=== PATIENT | female | born 1945 | race Caucasian/White ===

== ENCOUNTER → 2016-10-02 | Outpatient (CLI) | payer OTHER | LOC: CIMAGING 07:12 | DX: Z12.31 Encounter for screening mammogram for malignant neoplasm of breast (principal); Z80.3 Family history of malignant neoplasm of breast | CPT/HCPCS: G0202 ==

== ENCOUNTER → 2016-10-13 | Outpatient (CLI) | payer OTHER | LOC: CIMAGING 13:32 | DX: N60.01 Solitary cyst of right breast (principal) | CPT/HCPCS: 76641; G0206 ==

== ENCOUNTER → 2018-01-19 | Outpatient (CLI) | payer OTHER | LOC: CIMAGING 07:24 | DX: Z12.31 Encounter for screening mammogram for malignant neoplasm of breast (principal); Z80.3 Family history of malignant neoplasm of breast ==

== ENCOUNTER 2018-06-18 08:40 | Emergency (ER) | payer OTHER ==
[2018-06-18 08:47] VITALS: BP 115/65
--- NOTE | 2018-06-18 09:30 | EDPHY ---
General Time Seen by Provider: 06/18/18 09:20 Narrative: CHIEF COMPLAINT: Sciatica HISTORY OF PRESENT ILLNESS: Patient presents by private vehicle with complaints of sciatica. She states that she has a right lower back pain this started last night. Gradual onset. Constant duration. At rest it is a 7/10. With movement palpation it is 10/10. She describes no position of comfort. She has no midline back tenderness. No fever. No feeling of illness. She has some pain that radiates down the right leg to the dorsum of the foot. She has no saddle anesthesia. No incontinence of bowel or bladder. He has no history of epidural injections, IV drug use or discopathy. No trauma or fall. She has no midline back tenderness at any level. She has no difficulty ambulating but it is painful. No other associated complaints or modifying factors. REVIEW OF SYSTEMS: 10 systems were reviewed and negative with the exception of the elements mentioned in the history of present illness. PCP: Dr. Carpenter SPECIALISTS: None PAST MEDICAL HISTORY: Chronic pain dyslipidemia nicotine dependency, hypertension, degenerative joint PAST SURGICAL HISTORY: No recent surgical history. Remote hysterectomy SOCIAL HISTORY: Daily smoker. Denies alcohol or drug use. Lives independently. FAMILY HISTORY: Noncontributory EXAMINATION: General Appearance: Alert, no distress. Ambulatory. Conversing in full sentences. Well appearing. Head: normocephalic, atraumatic Eyes: Pupils equal and round, no conjunctival pallor or injection ENT, Mouth: Mucous membranes moist Neck: Normal inspection, supple, non-tender Respiratory: Lungs are clear to auscultation Cardiovascular: Regular rate and rhythm Gastrointestinal: Abdomen is soft and nontender Back: Normal appearance. No midline tenderness of the lumbar thoracic spine. There is point tenderness of the right SI joint. This does elicit her pain. She has normal range of motion. Neurological: A&O, nonfocal, normal steady gait. Light sensory symmetric at all levels below the umbilicus. She has excellent strength of the knees, ankles and great toe. Normal proprioception of great toes bilaterally. Skin: Warm and dry, no rash. No cellulitis, fluctuance, induration or abnormalities of the skin overlying the affected area. Extremities: Nontender, no pedal edema. Symmetric range of motion. Psychiatric: Mood and affect normal DIFFERENTIAL DIAGNOSES: Including but not limited to sciatica, lumbar radiculopathy, diskitis, discopathy, fracture, sprain, strain MDM: 9:20 a.m. Acute right lower back pain that is consistent with sciatica. I do feel this is a peripheral neuropathy and not a central or nerve root compression. I do not appreciate any true lumbar radiculopathy and she has no complaints of midline back pain. She has no history of discopathy, injections or IV drug use. No fever. She is well-appearing and nontoxic. We discuss symptomatic care with Lidoderm patches, short course of muscle relaxant pain medication. We discuss follow up with primary care physician on Wednesday for further care. We discussed strict ED precautions for worsening pain, numbness, weakness, fever , feeling ill, incontinence of bowel or bladder or midline pain. She is comfortable this plan. She is fully ambulatory without assistance and discharged home stable condition. SUPERVISION: Patient was independently examined, but I discussed the case with my secondary supervising physician Dr. Lu CONSULTATION: None. [facility] referral - History Smoking Status: Current every day smoker - Objective Vital Signs: Initial Vital Signs Temperature (C) 97.7 F 06/18/18 08:44 Heart Rate 64 06/18/18 08:44 Respiratory Rate 18 06/18/18 08:44 Blood Pressure 115/65 06/18/18 08:44 O2 Sat (%) 93 06/18/18 08:44 O2 Delivery Mode Room Air Allergies/Adverse Reactions: cephalexin monohydrate [From Keflex] Allergy (Verified 06/18/18 08:43) erythromycin base [Erythromycin Base] Allergy (Verified 06/18/18 08:43) Home Medications: Medication Instructions Recorded Mobic 09/28/12 predniSONE 20 mg PO TID #12 tab 09/24/13 Carvedilol 06/18/18 Hydrocodone/APAP 5/325 [[place] 1 - 2 tab PO Q4H PRN #7 tab 06/18/18 5/325 (*)] Lisinopril 06/18/18 Oxybutynin 06/18/18 Medications Given: Discontinued Medications Miscellaneous Information (Patch Removal) 1 ea TD DAILY21 MELECIO Stop: 12/15/18 20:59 Last Admin: 06/18/18 09:39 Dose: Not Given Miscellaneous Medication (Icy Hot Lidocaine/Menthol 4%/1% Patch) 1 patch TD EDNOW ONE Stop: 06/18/18 09:33 Last Admin: 06/18/18 09:39 Dose: 1 patch Departure - Departure Disposition: Home, Routine, Self-Care Clinical Impression: Acute low back pain with sciatica Qualifiers: Back pain laterality: right Sciatica laterality: sciatica of right side Qualified Code(s): M54.41 - Lumbago with sciatica, right side Condition: Good Instructions: Hydrocodone/Acetaminophen (By mouth), Sciatica (ED), Lower Back Exercises (ED) Additional Instructions: 1. Pain medication as prescribed as needed. Use caution when taking this medication. Do not drive or operate machinery. Do not take in conjunction with any other sedating medications. 2. Lidoderm topical patches as needed and directed on the box. you may by these [id number] and discussed with the pharmacist. 3. Contact her primary care physician on Wednesday and the outpatient senior benefits specialist we have provided 4. Return to emergency department immediately for any worsening pain, intolerable pain, weakness, numbness, fever, incontinence of bowel or bladder, retention of bowel or bladder, midline back pain Referrals: [facility] [Other] - As per Instructions [facility] [Outside] - As per Instructions Prescriptions: Hydrocodone/APAP 5/325 [[place] 5/325 (*)] 1 - 2 tab PO Q4H PRN #7 tab PRN Reason: Pain, Moderate
[2018-06-18] MEDS ORDERED: LIDOCAINE 4%/MENTHOL 1% PATCH TD ONE (09:32)
[2018-06-18] MEDS ORDERED: PATCH REMOVAL 1 EA PATCH TD SCH (21:00)
== END 2018-06-18 09:41 | disposition home or self-care (01) ==
DX: M54.41 Lumbago with sciatica, right side (principal); G89.29 Other chronic pain; E78.5 Hyperlipidemia, unspecified; F17.200 Nicotine dependence, unspecified, uncomplicated; I10 Essential (primary) hypertension